=== PATIENT | female | born 1985 | race Caucasian/White ===

== ENCOUNTER 2021-07-17 07:07 | Outpatient (CLI) | payer BC, SELFPAY ==
[2021-07-17 07:33] LABS: Hematocrit 38.5 % (37.0-47.0); Hemoglobin 13.1 g/dL (12.0-15.0); Mean Corpuscular Hemoglobin 29.8 pg (26-34); Mean Corpuscular Volume 87.5 fl (80-100); Mean Platelet Volume 9.5 fl (7.4-10.4); Platelet Count Result 206 k/mm3 (150-375); Red Cell Distribution Width 13.2 % (11.5-14.5); White Blood Count 8.7 K/mm3 (4.5-10.0)
== END 2021-07-17 07:08 | disposition home or self-care (01) ==
PROVIDERS: PCP Family Medicine; Visit Provider Obstetrics & Gynecology Gynecologic Oncology
DX: Z01.812 Encounter for preprocedural laboratory examination (principal)
CPT/HCPCS: 36415; 85027; 86850; 86900; 86901

== ENCOUNTER 2021-07-23 01:11 | Day surgery (SDC) | payer BC, SELFPAY ==
[2021-07-18 10:08] VITALS: BMI 25.0
--- NOTE | 2021-07-18 10:30 | PC.NURSE ---
Report to the Outpatient Waiting Room, entrance under the green pavilion located off [facility], at time __0600 on date __07/23/21_. OR Time: . - You and your visitor will be asked a series of questions to screen for COVID 19 for your protection. - A mask is required within the hospital. - Only one visitor is allowed at this time. Patient visitors will be guided where to wait when not with patient. Preoperative COVID Testing Requirements: No COVID Test needed if: (proof is required; if not received patient will have Rapid Test prior to entry) - Patient has received COVID Vaccine at least 14 days prior to procedure date or - Patient has positive COVID test result within last 90 days of surgery date. COVID Test needed if above criteria is not met PT BRINGING +COVID TEST FROM 06/02/21 AND RELEASE FROM HEALTH DEPT If not COVID vaccinated a COVID test must be conducted within 72 hours of surgery and patient is asked to isolate self from time of testing until procedure. You will go to the [facility] for your COVID testing. The [facility] is located at the corner of [address] [facility]. You will only be called if COVID results are positive and your surgeon may reschedule your elective surgery date. Patients may have clear liquids (water, carbonated beverages, clear teas, apple juice) until 3 hours prior to surgery with a maximum of 20 ounces. - No food from midnight until time of surgery - Infants may have breast milk until 4 hours before surgery, formula 6 hours prior to surgery. - Children will be allowed to drink immediately following surgery. If applicable, please bring a bottle or sippy cup to assist with drinking. Juice, water, soda, and popsicles are readily available. For infants on formula, please bring formula the day of surgery. Pacifiers are allowed. Take the following medications with a SIP of water the morning of surgery: __NONE Medications to discontinue per physician NONE Date to take last dose Please no make-up, nail korean, hairspray, perfume, deodorant, or body powder the day of surgery. No jewelry (including any body piercings) or valuables the day of surgery, leave them at home. Please take a shower or bath the night before, or the morning of, surgery with an antibacterial soap. Wear comfortable, loose fitting clothing. Children are encouraged to wear pajamas. - Jewelry must be removed prior to entering the operating room. Rings and piercings that are not removed may be cut off. - The hospital will not accept responsibility for valuables. - Please leave all valuables, including medications, at home the day of surgery. If you are going home after surgery, a licensed driver education instructor must drive you home. - NO public transportation without another adult. - We recommend that an adult stay with you for 24 hours following discharge. - We also recommend that you do not drive, make important decision, drink alcoholic beverages, or take any drugs that were not prescribed by your health care provider for at least 24 hours after your discharge time. For Pediatric surgeries, we recommend two adults accompany the child home (only one inside the building at this time). Follow any additional instructions given to you from your surgeon. Telephone instructions given to __PATIENT and asked if any additional questions and then verbalized understanding. Patient advised to call surgeon office or pre surgery nurse liaison [phone] if any additional questions.
--- NOTE | 2021-07-22 15:18 | WPDANESEPPF ---
Anes - Initial Pre Proc Eval Procedure: Operation Date: 07/23/21 07:30 Proposed Procedures p Diagnostic Laparoscopy, Bilateral Salpingectomy, Possible Right Ovarian Cystectomy, - Galina Montes De Oca DO s Hysteroscopy, Dilatation And Curettage, Endometrial Novasure Ablation - Galina Montes De Oca DO Date/Time: 07/22/21 15:18 Surgeon: Galina Montes De Oca DO Pre Op Diagnosis: Abnormal Uterine Bleed, Desires Surgical Sterility Patient Data Age: 36 Gender: F Height: 1.56 m Weight: 61 kg Allergies Allergy/AdvReac Type Severity Reaction Status Date / Time morphine AdvReac Mild Itching Verified 07/23/21 06:23 DERMABOND Allergy Unknown Rash, Uncoded 07/23/21 06:23 ITCHING, BURNING BACITRACIN ZINC AdvReac Unknown RASH Uncoded 07/23/21 06:23 NEOMYCIN SULFATE AdvReac Unknown RASH Uncoded 07/23/21 06:23 POLYMYXIN B SULFATE AdvReac Unknown RASH Uncoded 07/23/21 06:23 Home Medications Medication Instructions Recorded Confirmed Type cetirizine [Zyrtec] 10 mg PO DAILY 07/18/21 07/23/21 History valacyclovir 500 mg PO BID PRN 07/18/21 07/23/21 History Patient hx anesthesia problems: post op nausea/vomiting Family hx anesthesia problems: none Results Review: All pre-operative results and documents have been reviewed as part of the pre-operative evaluation. PMFSH Past Medical History Medical History Abnormal uterine bleeding Ovarian cyst Smoker Social History Social History Smoking packs per day: 0.75 Smoking cigarettes per day: 15.0 Years smoked: 20 Smoking pack-years: 15.00 Smoking status: Former smoker Tobacco type: cigarettes Alcohol intake: current Drinks per week: 7 Substance use: never Living arrangements: with family Additional living arrangements comments: , CHILD Spiritual care concerns: No Anes - Eval Final PreProcedure Day of Procedure 07/22/21 15:18 Patient weight: normal Heart: regular rate and rhythm Lungs: clear to auscultation and normal air movement Airway: Mallampati scale class II Neurological: alert and oriented Last oral intake: >/= 8 hours ASA classification: II Emergent: no Anesthetic plan: proceed Anesthesia type and monitoring: general ETT Results Review: All pre-operative results and documents have been reviewed as part of the pre-operative evaluation. Informed Consent: The patient's anesthetic plan and its attendant risks and benefits were discussed with the patient/family/POA. Questions were solicited and answers provided to the satisfaction of the patient/family/POA.
[2021-07-23] VITALS (13 sets, daily range): BP systolic 76–154; BP diastolic 42–94; PULSE 64–88; RESP 10–20; TEMP 36.3–37.4; O2SAT 93–100
[2021-07-23] MEDS: ACETAMINOPHEN 500 MG TABLET 1000 MG PO (06:42)
[2021-07-23] MEDS: GABAPENTIN 300 MG CAPSULE PO (06:42)
[2021-07-23] MEDS: SCOPOLAMINE 1.5 MG PATCH TRANSDERM (07:16)
[2021-07-23] MEDS: LACTATED RINGERS 1,000 ML 30 ML IV CONT ×3 (07:20→11:55)
[2021-07-23] MEDS: KETOROLAC 15 MG/ML VIAL (*BKC) IV PUSH (07:30)
--- NOTE | 2021-07-23 07:37 | P.HP_ITS ---
H&P: HPI History of Present Illness Date/Time: 07/23/21 07:37 Chief Complaint: I'm here for my surgery Narrative: She presents for diagnostic lap, bilateral salpingectomy, possible right ovarian cystectomy, endometrial ablation. Review of Systems Review of Systems: All systems reviewed & are unremarkable except as noted in HPI and below [facility] Past Medical History Medical History Abnormal uterine bleeding Ovarian cyst Smoker Social History Social History Smoking packs per day: 0.75 Smoking cigarettes per day: 15.0 Years smoked: 20 Smoking pack-years: 15.00 Smoking status: Former smoker Tobacco type: cigarettes Alcohol intake: current Drinks per week: 7 Substance use: never Living arrangements: with family Additional living arrangements comments: , CHILD Spiritual care concerns: No Meds Home Medications and Allergies Home Medications Medication Instructions Recorded Confirmed Type cetirizine [Zyrtec] 10 mg PO DAILY 07/18/21 07/23/21 History valacyclovir 500 mg PO BID PRN 07/18/21 07/23/21 History Allergies Allergy/AdvReac Type Severity Reaction Status Date / Time morphine AdvReac Mild Itching Verified 07/23/21 06:23 bacitracin AdvReac Unknown Rash Verified 07/23/21 07:20 neomycin AdvReac Unknown Rash Verified 07/23/21 07:20 polymyxin B AdvReac Unknown Rash Verified 07/23/21 07:20 DERMABOND Allergy Unknown Rash, Uncoded 07/23/21 06:23 ITCHING, BURNING Exam Const: General: no acute distress Eyes: General: appearance normal, both eyes and all related structures Resp: Auscultation: clear to auscultation bilaterally Cardio: Rate: regular rate Rhythm: regular rhythm GI: GI Palp: Yes Soft to palpation Percussion: Yes normal to percussion : External Female Exam: normal external appearance Skin: General skin exam: normal color Psych: Mental Status: mental status grossly normal Assessment and Plan Assessment and plan (1) Ovarian cyst: Code(s): N83.209 - Unspecified ovarian cyst, unspecified side Status: Acute (2) Abnormal uterine bleeding: Code(s): N93.9 - Abnormal uterine and vaginal bleeding, unspecified Status: Acute (3) Sterilization: Code(s): Z30.2 - Encounter for sterilization Status: Acute Assessment and Plan: Diagnostic laparoscopy, bilateral salpingectomy, possible right ovarian cystectomy, hysteroscopy, D&C, endometrial ablation
--- NOTE | 2021-07-23 07:42 | WPDHPUPDATE1 ---
History and Physical Update Update Date/Time: 07/23/21 07:42 History and Physical has been reviewed, including an updated exam of the patient. There are NO changes in the patient's condition. Risks, benefits, and alternatives have been discussed and questions answered. Patient agrees to proceed with procedure.
--- NOTE | 2021-07-23 09:38 | W.PM.PROC2 ---
Procedure Note - Detailed Date of Procedure 07/23/21 Pre-op Diagnosis Abnormal Uterine Bleed, Desires Surgical Sterility, Right ovarian cyst Post-op Diagnosis other (Right paraovarian cyst) Procedure Performed Diagnostic laparoscopy, bilateral salpingectomy, drainage of right ovarian cyst, repair of uterine perforation. Hysteroscopy, D&C. Failed endometrial ablation Surgeon Galina Montes De Oca DO Ventilating Expert Esthela Anesthesia general Indications Abnormal uterine bleeding, right adnexal cyst, desires permanent sterilization Findings Normal appearing vulva and vaginal canal. The cervix was medium in size. Inside the uterine cavity there were no obvious lesions, both tubal ostia were visualized. Within the abdomen, the liver and bowels appeared grossly normal. There was a small group of filmy adhesions from the cecum to the anterior abdominal wall. There were physiologic adhesions from the sigmoid to the right pelvis. The bladder flap and posterior cul-de-sac were normal. The left ovary was normal. The right ovary contained a small simple cyst and the tube contained a 1cm or smaller paratubal cyst. Description of Procedure The patient was taken to the operating room where she was placed under general anesthesia. She was prepped and draped in the jennifer, sterile fashion in dorsal lithotomy position. A timeout was performed. No preoperative antibiotics were indicated. A fox was placed. The speculum was used to visualize the cervix and the anterior lip was grasped with a tenaulum. The cervix was dilated to accommodate a Kroner uterine manipulator. The speculum and tenaculum were removed. Gloves were changed and attention was then turned to the abdomen. The skin above the umbilicus was grasped with penetrating towel clamps and injected. An incision was made and a Veress needle was introduced. A Saline water drop test was performed confirming intraperitoneal placement. CO2 insufflation was started and the abdomen was brought to a filling pressure of 15mmg Hg. The Veress needle was removed and a 5mm Optiview trocar was inserted under direct visualization. There was no evidence of bowel or vascular injury. The patient was placed in steep Trendelenburg position. Additional trocar sites in the right and left lower quadrants were identified, injected and incised. Additional 5mm trocars were introduced under direct visualization. The ligasure was used to take down the filmy adhesions from the cecum and the sigmoid so that each adnexa could be clearly visualized. The uterus was anteverted and shifted to the right, the left tube was elevated, cauterized and transected off using the ligasure. It was handed off through the assist port. The procedure was repeated identically on the right side, the paratubal cyst had to be drained to remove it through the 5 mm trocar. The tube was removed. The right ovarian cyst was simple in nature and was drained. All fluid was suctioned out of the abdomen. The trocars were removed and gas allowed to escape. Esthela then closed the trocar incisions with 4-0 monocryl in a subcuticular fashion. The patient was taken out of most the Trendelenburg and we proceeded with the hysteroscopy portion. The Uterine manipulator was removed and the cervix regrasped with a tenaculum. The hysteroscope was introduced with revealed a normal shaped uterine cavity, no lesions. Both tubal ostia were visualized. The Novasure device was introduced, unfortunately several cavity assessments were unsuccessful despite an apparently good seal around the cervix. Uterine perforation was assumed. The Novasure was removed and the Kroner reintroduced. I changed gloves and reinserted the 5 mm trocar at the umbilicus. The patient was placed back in steep Trendelenburg. Survey of the pedicles revealed good hemostasis, there was a small amount of irrigation in the posterior cul-de-sac. Although not seen at the time of initial salpingectomy, there was now a very small defect seen in the fundus jus
[2021-07-23] MEDS: DOXYCYCLINE IV 100 MG in SODIUM CHLORIDE 0.9% IV 100 ML IVPB (10:15)
[2021-07-23] MEDS: fentaNYL CITRATE INJ (*CRX) 100 MCG/2 ML VIAL 25 MCG IV PUSH ×3 (10:19→10:50)
--- NOTE | 2021-07-23 12:52 | SUR.PHASEII ---
SPOKE WITH DR. BARNES REGARDING PT BLOOD PRESSURE. CAME IN WITH BASELINE BLOOD PRESSURE OF 96/65 AND PULSE OF 81. CURRENT BLOOD PRESSURE 79/40 WITH PULSE IN THE LOW 80S - MID 70S. NOT SYMPTOMATIC. HAS HAD [address] BARNES PATIENT IS TO RECEIVE ANOTHER 500 IN FLUIDS BEFORE DISCHARGE.
== END 2021-07-23 13:47 | disposition home or self-care (01) ==
PROVIDERS: PCP Family Medicine; Visit Provider Obstetrics & Gynecology Gynecologic Oncology
PROC: (CPT 49320; principal; 2021-07-23 07:30)
PROC: 0U5B8ZZ Destruction of Endometrium, Via Natural or Artificial Opening Endoscopic (ICD-10-PCS; CPT 58563; 2021-07-23 07:30)
DX: N93.9 Abnormal uterine and vaginal bleeding, unspecified (principal); Z30.2 Encounter for sterilization; N99.71 Accidental puncture and laceration of a genitourinary system organ or structure during a genitourinary system procedure; Y65.8 Other specified misadventures during surgical and medical care; N83.201 Unspecified ovarian cyst, right side; Z87.891 Personal history of nicotine dependence
CPT/HCPCS: 58661; 58662; 58563; 58578; 36415; 86850; 86900; 86901; 88302; 88305; A9270; J0330; J1885; J2250; J2405; J2704; J3010; J7030; J7120